=== PATIENT | male | born 1970 | race Two or more races ===

== ENCOUNTER 2021-11-10 13:48 | Inpatient (IN) | payer MEDICARE, MEDICAID ==
[~2021-11-10] VITALS: Ht 177.8 cm; Wt 99.8 kg
--- NOTE | 2021-11-10 13:30 | NUR ---
PT WAS ADMITTED TO ROOM 114 FROM [facility] AT 1330. ADMISSION COMPLETED, MONITORS APPLIED. VSS.
[2021-11-10 13:45] VITALS: BP 154/89
[2021-11-10] MEDS ORDERED: PANT40TA77 PO (14:45)
[2021-11-10] MEDS ORDERED: CRESTOR40 MG PO (14:45)
[2021-11-10] MEDS ORDERED: CLOP75TA PO (14:45)
[2021-11-10] MEDS ORDERED: BUPR150T27 PO (14:45)
[2021-11-10] MEDS ORDERED: CARV25TA2 PO (14:45)
[2021-11-10 15:21] VITALS: BP 145/89
[2021-11-10] MEDS ORDERED: PROCHLORPERAZINE 10 MG/2 ML VIAL. IV PRN (15:45)
[2021-11-10] MEDS ORDERED: DOCUSATE SODIUM 100 MG CAPSULE. PO PRN (15:45)
[2021-11-10] MEDS ORDERED: ONDANSETRON PF 4 MG/2 ML VIAL. IVP PRN (15:45)
[2021-11-10] MEDS: IV NORMAL SALINE 1000ML BAG 1,000 ML IV SCH (15:45)
[2021-11-10] MEDS ORDERED: LORazepam 0.5 MG TABLET PO PRN (15:45)
[2021-11-10] MEDS ORDERED: diphenhydrAMINE HCL 25 MG CAPSULE PO PRN ×2 (15:45)
[2021-11-10] MEDS ORDERED: ACETAMINOPHEN 325 MG TABLET. PO PRN (15:45)
[2021-11-10] MEDS ORDERED: DEXTROSE 50% 25 GM / 50ML DISP.SYRIN. IV PRN (15:45)
[2021-11-10] MEDS ORDERED: ZOLPIDEM 5 MG TABLET. PO PRN (15:45)
[2021-11-10] MEDS ORDERED: diphenhydrAMINE 50 MG/ML VIAL IVP PRN (15:45)
[2021-11-10] MEDS ORDERED: SENNOSIDES 8.6 MG TABLET PO PRN (15:45)
[2021-11-10 17:12] VITALS: BP 108/68
[2021-11-10 18:12] VITALS: BP 126/95
[2021-11-10 20:00] VITALS: BP 118/79
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
[2021-11-10] MEDS: buPROPion SR 150 MG TABLET.SA PO SCH (22:03)
[2021-11-10 23:00] VITALS: BP 102/73
[2021-11-11] MEDS: IV NORMAL SALINE 1000ML BAG 1,000 ML IV SCH ×2 (01:45→11:38)
[2021-11-11 03:00] VITALS: BP 127/87
[2021-11-11 04:59] LABS: BASO # 0.1 x10^3/uL (0.0-0.2); BASO % 1 % (0-3); EOS # 0.3 x10^3/uL (0.0-0.7); EOS % 5 % (0-3); HEMATOCRIT 43.4 % (39.0-53.0); HEMOGLOBIN 14.6 g/dL (13.0-17.5); LYMPH # 2.1 x10^3/uL (1.0-4.8); LYMPH % 29 % (24-48); MEAN CORPUSCULAR HEMOGLOBIN 30 pg (25-35); MEAN CORPUSCULAR HGB CONC 34 g/dL (31-37); MEAN CORPUSCULAR VOLUME 90 fL (79-100); MONO # 0.9 x10^3/uL (0.0-1.1); MONO % 12 % (0-9); NEUT # 3.8 x10^3/uL (1.8-7.7); NEUT % 53 % (31-73); PLATELET COUNT 176 x10^3/uL (140-400); RED BLOOD COUNT 4.85 x10^6/uL (4.30-5.70); RED CELL DISTRIBUTION WIDTH 14.3 % (11.5-14.5); WHITE BLOOD COUNT 7.2 x10^3/uL (4.0-11.0)
[2021-11-11 05:14] LABS: CALCIUM 8.2 mg/dL (8.5-10.1); CREATININE 1.3 mg/dL (0.7-1.3); GFR 58.7; MAGNESIUM 2.1 mg/dL (1.8-2.4); PHOSPHORUS 3.2 mg/dL (2.6-4.7); POTASSIUM 3.9 mmol/L (3.5-5.1)
[2021-11-11 07:00] VITALS: BP 145/91
[2021-11-11] MEDS ORDERED: PANTOPRAZOLE 40 MG TABLET.DR. PO SCH (07:30)
[2021-11-11] MEDS ORDERED: ASPIRIN ENTERIC COATED 81 MG TABLET.DR. PO SCH (08:00)
[2021-11-11] MEDS ORDERED: CARVEDILOL 12.5 MG TABLET. PO SCH (08:00)
[2021-11-11] MEDS: buPROPion SR 150 MG TABLET.SA PO SCH (08:03)
[2021-11-11] MEDS ORDERED: CLOPIDOGREL BISULFATE 75 MG TABLET PO SCH (09:00)
[2021-11-11] MEDS ORDERED: ATORVASTATIN CALCIUM 40 MG TABLET. PO SCH (09:00)
[2021-11-11 09:36] LABS: CHOLESTEROL/HDL RATIO 3.8
--- NOTE | 2021-11-11 10:28 | PDOC2 ---
NEUROLOGY CONSULT Date of Service DOS: DATE: 11/11/21 TIME: Reason for Consult Reason for Consult: Possible stroke Referring Physician Referring Physician: Dr. Wagoner Source Source: Caregiver (), Chart review, Patient History of Present Illness History of Present Illness The patient is a 51-year-old right-handed male with a history of cerebral palsy affecting the right side of his body. He woke up yesterday morning with increased right-sided numbness and weakness. He came to the [facility] emergency department. He did undergo CT angiogram as reviewed below. He is feeling somewhat better today but still feels a little bit numb on the right. There is no prior history of stroke, seizure, or head injury. Last known normal was 11/09, 21:00 Past Medical History Cardiovascular: CAD, HTN, [place], Hyperlipidemia CENTRAL NERVOUS SYSTEM: Other (Cerebral palsy) GI: GERD Psych: Depression Past Surgical History Past Surgical History: Other (Coronary stent) Family History Family History: CAD Social History Social History , unemployed, no alcohol or tobacco in 2 years Current Medications Current Medications Current Medications Sennosides (Senna) 17.2 mg PRN BID PRN PO CONSTIPATION; Start 11/10/21 at 15:45 Docusate Sodium (Colace) 100 mg PRN DAILY PRN PO HARD STOOLS; Start 11/10/21 at 15:45 Ondansetron HCl (Zofran) 4 mg PRN Q6HRS PRN IVP NAUSEA/VOMITING, 1st CHOICE; Start 11/10/21 at 15:45 Aspirin (Ecotrin) 81 mg DAILYWBKFT PO Last administered on 11/11/21at 08:02; Start 11/11/21 at 08:00 Dextrose (Dextrose 50%-Water Syringe) 12.5 gm PRN Q15MIN PRN IV SEE COMMENTS; Start 11/10/21 at 15:45 Sodium Chloride 1,000 ml @ 100 mls/hr Q10H IV Last administered on 11/11/21at 01:45; Start 11/10/21 at 15:45 Acetaminophen (Tylenol) 650 mg PRN Q4HRS PRN PO TEMP OVER 100.4F OR MILD PAIN; Start 11/10/21 at 15:45 Lorazepam (Ativan) 0.5 mg PRN Q6HRS PRN PO ANXIETY / AGITATION; Start 11/10/21 at 15:45 Lorazepam (Ativan Inj) 0.25 mg PRN Q4HRS PRN IV ANXIETY / AGITATION; Start 11/10/21 at 15:45 Prochlorperazine Edisylate (Compazine) 10 mg PRN Q6HRS PRN IV NAUSEA/VOMITING, 2nd CHOICE; Start 11/10/21 at 15:45 Diphenhydramine HCl (Benadryl) 25 mg PRN Q6HRS PRN IVP ITCHING; Start 11/10/21 at 15:45 Diphenhydramine HCl (Benadryl) 25 mg PRN Q6HRS PRN PO ITCHING; Start 11/10/21 at 15:45 Diphenhydramine HCl (Benadryl) 25 mg PRN QHS PRN PO INSOMNIA, 1st CHOICE; Start 11/10/21 at 15:45 Zolpidem Tartrate (Ambien) 2.5 mg PRN QHS PRN PO INSOMNIA, 2nd CHOICE; Start 11/10/21 at 15:45 Clopidogrel Bisulfate (Plavix) 75 mg DAILY PO Last administered on 11/11/21at 08:02; Start 11/11/21 at 09:00 Pantoprazole Sodium (Protonix) 40 mg DAILYAC PO Last administered on 11/11/21at 08:02; Start 11/11/21 at 07:30 Bupropion HCl (Wellbutrin Sr) 150 mg BID PO Last administered on 11/11/21at 08:03; Start 11/10/21 at 22:00 Carvedilol (Coreg) 25 mg BIDWMEALS PO Last administered on 11/11/21at 08:03; Start 11/11/21 at 08:00 Atorvastatin Calcium (Lipitor) 80 mg DAILY PO Last administered on 11/11/21at 08:03; Start 11/11/21 at 09:00 Active Scripts Active Reported Crestor (Rosuvastatin Calcium) 40 Mg Tablet 0.5 Tab PO DAILY Protonix (Pantoprazole Sodium) 40 Mg Tablet.dr 40 Mg PO DAILYAC Clopidogrel (Clopidogrel Bisulfate) 75 Mg Tablet 1 Tab PO DAILY Bupropion Hcl Sr (Bupropion Hcl) 150 Mg Tablet.er 150 Mg PO BID Carvedilol 25 Mg Tablet 25 Mg PO BIDWMEALS Allergies Allergies: Coded Allergies: No Known Drug Allergies (Unverified , 11/10/21) ROS Review of System Negative for fever, chills, weight loss, shortness of breath, chest pain, indigestion, hematochezia, melena, and dysuria. Full 14-point review of systems is negative. Physical Exam Physical Examination General: Well-developed, well-nourished white male in no acute distress HEENT: Normocephalic andatraumatic. Temporal arteriespulsatile and nontender. Neck: Supple without bruit, no meningismus Musculoskeletal: Stability:see neurologic. Gait exam:see neurologic. Tone:see neurologic.Strength:see neurologic. Neurological: Mental Status:intact, orientation, memory, attention span/concentration, language, fund of knowledge normal. Cranial Nerves:Pupils equal and reactive to light, extraocular movements areintact, visual bose are full to confrontation. Facial sensation is normal. There is no facial asymmetry. Vestibulo-ocular reflex is intact. Palate elevates and tongue protrudes in midline. All other cranial related problems are negative except as mentioned before.Reflexes:2+ and symmetric with flexor plantar responses. Motor:5-/5 right hemiparesis, otherwise 5/5 strength with normal tone and bulk. Coordination:Finger-nose finger and eexp-sd-wwwf testing are normal. Rapid alternating movements and fine finger movements are intact. Gait:A little unsteady. Sensory:Catchy loss on the right Vitals VITALS Vital Signs Date Time Temp Pulse Resp B/P (MAP) Pulse Ox O2 Delivery O2 Flow Rate FiO2 11/11/21 08:03 72 145/91 11/11/21 08:00 Room Air 11/11/21 07:00 98.0 20 96 98.0 Labs Labs Laboratory Tests Test 11/11/21 04:40 White Blood Count 7.2 x10^3/uL (4.0-11.0) Red Blood Count 4.85 x10^6/uL (4.30-5.70) Hemoglobin 14.6 g/dL (13.0-17.5) Hematocrit 43.4 % (39.0-53.0) Mean Corpuscular Volume 90 fL (79-100) Mean Corpuscular Hemoglobin 30 pg (25-35) Mean Corpuscular Hemoglobin Concent 34 g/dL (31-37) Red Cell Distribution Width 14.3 % (11.5-14.5) Platelet Count 176 x10^3/uL (140-400) Neutrophils (%) (Auto) 53 % (31-73) Lymphocytes (%) (Auto) 29 % (24-48) Monocytes (%) (Auto) 12 % (0-9) Eosinophils (%) (Auto) 5 % (0-3) Basophils (%) (Auto) 1 % (0-3) Neutrophils # (Auto) 3.8 x10^3/uL (1.8-7.7) Lymphocytes # (Auto) 2.1 x10^3/uL (1.0-4.8) Monocytes # (Auto) 0.9 x10^3/uL (0.0-1.1) Eosinophils # (Auto) 0.3 x10^3/uL (0.0-0.7) Basophils # (Auto) 0.1 x10^3/uL (0.0-0.2) Sodium Level 142 mmol/L (136-145) Potassium Level 3.9 mmol/L (3.5-5.1) Chloride Level 107 mmol/L (98-107) Carbon Dioxide Level 29 mmol/L (21-32) Anion Gap 6 (6-14) Blood Urea Nitrogen 11 mg/dL (8-26) Creatinine 1.3 mg/dL (0.7-1.3) Estimated GFR (Cockcroft-Gault) 58.7 Glucose Level 112 mg/dL (70-99) Calcium Level 8.2 mg/dL (8.5-10.1) Phosphorus Level 3.2 mg/dL (2.6-4.7) Magnesium Level 2.1 mg/dL (1.8-2.4) Triglycerides Level 69 mg/dL (0-150) Cholesterol Level 117 mg/dL (0-200) LDL Cholesterol, Calculated 72 mg/dL (0-100) VLDL Cholesterol, Calculated 14 mg/dL (0-40) Non-HDL Cholesterol Calculated 86 mg/dL (0-129) HDL Cholesterol 31 mg/dL (40-60) Cholesterol/HDL Ratio 3.8 Laboratory Tests Test 11/11/21 04:40 White Blood Count 7.2 x10^3/uL (4.0-11.0) Red Blood Count 4.85 x10^6/uL (4.30-5.70) Hemoglobin 14.6 g/dL (13.0-17.5) Hematocrit 43.4 % (39.0-53.0) Mean Corpuscular Volume 90 fL (79-100) Mean Corpuscular Hemoglobin 30 pg (25-35) Mean Corpuscular Hemoglobin Concent 34 g/dL (31-37) Red Cell Distribution Width 14.3 % (11.5-14.5) Platelet Count 176 x10^3/uL (140-400) Neutrophils (%) (Auto) 53 % (31-73) Lymphocytes (%) (Auto) 29 % (24-48) Monocytes (%) (Auto) 12 % (0-9) Eosinophils (%) (Auto) 5 % (0-3) Basophils (%) (Auto) 1 % (0-3) Neutrophils # (Auto) 3.8 x10^3/uL (1.8-7.7) Lymphocytes # (Auto) 2.1 x10^3/uL (1.0-4.8) Monocytes # (Auto) 0.9 x10^3/uL (0.0-1.1) Eosinophils # (Auto) 0.3 x10^3/uL (0.0-0.7) Basophils # (Auto) 0.1 x10^3/uL (0.0-0.2) Sodium Level 142 mmol/L (136-145) Potassium Level 3.9 mmol/L (3.5-5.1) Chloride Level 107 mmol/L (98-107) Carbon Dioxide Level 29 mmol/L (21-32) Anion Gap 6 (6-14) Blood Urea Nitrogen 11 mg/dL (8-26) Creatinine 1.3 mg/dL (0.7-1.3) Estimated GFR (Cockcroft-Gault) 58.7 Glucose Level 112 mg/dL (70-99) Calcium Level 8.2 mg/dL (8.5-10.1) Phosphorus Level 3.2 mg/dL (2.6-4.7) Magnesium Level 2.1 mg/dL (1.8-2.4) Triglycerides Level 69 mg/dL (0-150) Cholesterol Level 117 mg/dL (0-200) LDL Cholesterol, Calculated 72 mg/dL (0-100) VLDL Cholesterol, Calculated 14 mg/dL (0-40) Non-HDL Cholesterol Calculated 86 mg/dL (0-129) HDL Cholesterol 31 mg/dL (40-60) Cholesterol/HDL Ratio 3.[address] ANGIOGRAPHY HEAD AND NECK PQRS Compliance Statement: One or more of the following individualized dose reduction techniques were utilized for this examination: 1. Automated exposure control 2. Adjustment of the mA and/or kV according to patient size 3. Use of iterative reconstruction technique CTA HEAD AND NECK W/WO CONTRAST 11/10/2021 9:10 AM INDICATION: Right-sided facial and body weakness COMPARISON: None available TECHNIQUE: Multiple axial CT images of the head and neck were obtained after the intravenous administration of nonionic contrast. Coronal and sagittal reformats are provided. Maximum intensity projection images are provided. Stenosis calculations for CT, MR, and conventional angiography are based upon measurements of the distal ICA diameter in accordance with the NASCET methodolo gy. Stenosis calculations for carotid ultrasound studies are derived from validated velocity criteria which are known to correlate with the NASCET methodology. FINDINGS: Ventricles, sulci and basal cisterns are normal in appearance. [place]-white matter differentiation is preserved. There is no mass, mass effect or midline shift. Posterior fossa is normal in appearance. Sella and suprasellar cistern appear normal. Orbits are normal in appearance . Scalp and calvaria appear intact. Mild mucosal thickening of the maxillary sinuses. Mastoid air cells are well aerated. Visualized portions of lungs are clear. Thyroid gland is normal in appearance. Neck soft tissues are normal in appearance. Right paratracheal lymph node measures 1.1 cm (series 4, image 180). Precarinal lymph node measures 1.5 cm (series 4, image 188). Pharynx and larynx appear intact. Vascular findings: There is a normal three-vessel aortic arch. Origins of the brachiocephalic vessels are widely patent. Right common carotid artery is normal in course and caliber. No significant atherosclerotic changes are identified at the right carotid bifurcation. No significant stenosis of the right cervical internal carotid artery. External carotid artery is widely patent. Left common carotid artery is normal in course and caliber. No significant atherosclerotic changes are identified at the left carotid bifurcation. No significant stenosis of the left cervical internal carotid artery. External carotid artery is widely patent. Cervical vertebral arteries are normal in course and caliber. There is mild irregularity of the left intracranial vertebral artery. Intracranial segments of internal carotid arteries are normal in course and caliber. There is mild calcified atheromatous plaque involving the cavernous segments without significant stenosis. Origins of the ophthalmic segments of the internal carotid artery appears widely patent. Middle cerebral arteries are normal in course and caliber with patent sylvian branches. Anterior cerebral arteries are normal in course and caliber. Anterior communicating artery is visualized. Basilar artery is normal in course and caliber. Superior cerebellar arteries are widely patent. Posterior cerebral arteries are normal in course and caliber. There is no aneurysm, vascular malformation or high-grade stenosis/large vessel occlusion involving [place]. Superior sagittal sinus is patent. IMPRESSION: 1. There is no evidence for acute intracranial hemorrhage. Mild irregularity involving the left intracranial vertebral artery without significant stenosis. 2. There is no evidence for hemodynamically significant carotid stenosis. 3. There is no aneurysm, vascular malformation or high-grade stenosis/large vessel occlusion involving the [place]. 4. Mediastinal lymphadenopathy remains indeterminate. Dedicated CT chest could be of benefit for further characterization. Findings may be reactive and correlation with recent pulmonary infection is recommended. Assessment/Plan Assessment/Plan Impression: Right-sided stroke symptoms in the setting of previous right-sided cerebral palsy, patient says that he is better than yesterday but still not back to baseline. Lipid profile already back, favorable. Hypertension, coronary artery disease Recommendations: MRI of the brain Echocardiogram Aspirin and statin Rehabilitation screening Discharge later today if tests are negative. Discussed with patient and his . Thank you for letting me help with the patient's care. HANH BEJARANO MD November 11, 2021 10:28
--- NOTE | 2021-11-11 10:52 | PDOC ---
[employer] PROGRESS NOTE Date of Service DOS: DATE: 11/11/21 TIME: 10:51 Chief Complaint Chief Complaint TIA versus stroke History of Present Illness History of Present Illness 11/12/2019 Patient seen and examined He seems to be at his baseline An MRI has been ordered by neurology We hope to discharge after MRI if okay with neurology Discussed with RN Discussed with case maker Vitals/I&O Vitals/I&O: Vital Signs Date Time Temp Pulse Resp B/P (MAP) Pulse Ox O2 Delivery O2 Flow Rate FiO2 11/11/21 08:03 72 145/91 11/11/21 08:00 Room Air 11/11/21 07:00 98.0 20 96 98.0 I & O 11/10/21 11/10/21 11/11/21 15:00 23:00 07:00 Intake Total 1352 ml Output Total 750 ml 450 ml Balance -750 ml 902 ml Physical Exam General: Alert Heart: Regular rate Lungs: Clear Abdomen: Normal bowel sounds Extremities: No clubbing Skin: No rashes Labs Labs: Laboratory Tests Test 11/11/21 04:40 White Blood Count 7.2 x10^3/uL (4.0-11.0) Red Blood Count 4.85 x10^6/uL (4.30-5.70) Hemoglobin 14.6 g/dL (13.0-17.5) Hematocrit 43.4 % (39.0-53.0) Mean Corpuscular Volume 90 fL (79-100) Mean Corpuscular Hemoglobin 30 pg (25-35) Mean Corpuscular Hemoglobin Concent 34 g/dL (31-37) Red Cell Distribution Width 14.3 % (11.5-14.5) Platelet Count 176 x10^3/uL (140-400) Neutrophils (%) (Auto) 53 % (31-73) Lymphocytes (%) (Auto) 29 % (24-48) Monocytes (%) (Auto) 12 % (0-9) Eosinophils (%) (Auto) 5 % (0-3) Basophils (%) (Auto) 1 % (0-3) Neutrophils # (Auto) 3.8 x10^3/uL (1.8-7.7) Lymphocytes # (Auto) 2.1 x10^3/uL (1.0-4.8) Monocytes # (Auto) 0.9 x10^3/uL (0.0-1.1) Eosinophils # (Auto) 0.3 x10^3/uL (0.0-0.7) Basophils # (Auto) 0.1 x10^3/uL (0.0-0.2) Sodium Level 142 mmol/L (136-145) Potassium Level 3.9 mmol/L (3.5-5.1) Chloride Level 107 mmol/L (98-107) Carbon Dioxide Level 29 mmol/L (21-32) Anion Gap 6 (6-14) Blood Urea Nitrogen 11 mg/dL (8-26) Creatinine 1.3 mg/dL (0.7-1.3) Estimated GFR (Cockcroft-Gault) 58.7 Glucose Level 112 mg/dL (70-99) Calcium Level 8.2 mg/dL (8.5-10.1) Phosphorus Level 3.2 mg/dL (2.6-4.7) Magnesium Level 2.1 mg/dL (1.8-2.4) Triglycerides Level 69 mg/dL (0-150) Cholesterol Level 117 mg/dL (0-200) LDL Cholesterol, Calculated 72 mg/dL (0-100) VLDL Cholesterol, Calculated 14 mg/dL (0-40) Non-HDL Cholesterol Calculated 86 mg/dL (0-129) HDL Cholesterol 31 mg/dL (40-60) Cholesterol/HDL Ratio 3.8 Comment Review of Relevant I have reviewed the following items katia (where applicable) has been applied. Medications: Current Medications Medications (Trade) Dose Ordered Sig/Cleve Route PRN Reason Start Time Stop Time Status Last Admin Dose Admin Aspirin (Ecotrin) 81 mg DAILYWBKFT PO 11/11/21 08:00 11/11/21 08:02 Sodium Chloride 1,000 ml @ 100 mls/hr Q10H IV 11/10/21 15:45 11/11/21 01:45 Clopidogrel Bisulfate (Plavix) 75 mg DAILY PO 11/11/21 09:00 11/11/21 08:02 Pantoprazole Sodium (Protonix) 40 mg DAILYAC PO 11/11/21 07:30 11/11/21 08:02 Bupropion HCl (Wellbutrin Sr) 150 mg BID PO 11/10/21 22:00 11/11/21 08:03 Carvedilol (Coreg) 25 mg BIDWMEALS PO 11/11/21 08:00 11/11/21 08:03 Atorvastatin Calcium (Lipitor) 80 mg DAILY PO 11/11/21 09:00 11/11/21 08:03 Justifications for Admission Other Justification MADAI MURDOCK III DO November 11, 2021 10:52
[2021-11-11] MEDS ORDERED: ASPI-886 PO (10:54)
[2021-11-11 11:00] VITALS: BP 140/95
[2021-11-11 15:00] VITALS: BP 114/71
--- NOTE | 2021-11-11 16:03 | CARD ---
MR#: [id number] Date of Study: 11/11/2021 Ordering Physician: HANH BEJARANO, Referring Physician: HANH BEJARANO, Tech: Manju Saul [facility] APPROVED REPORT EXAM: Two-dimensional and M-mode echocardiogram with Doppler and color Doppler. Other Information Quality : Technically LimitedHR: 67bpm Rhythm : NSR INDICATION Dyspnea 2D DIMENSIONS Left Atrium(2D)3.7 (1.6-4.0cm)IVSd1.3 (0.7-1.1cm) Aortic Root(2D)3.1 (2.0-3.7cm)LVDd4.1 (3.9-5.9cm) LVOT Diameter2.0 (1.8-2.4cm)PWd1.2 (0.7-1.1cm) LVDs2.4 (2.5-4.0cm)FS (%) 41.2 % SV53.2 mlLVEF(%)72.6 (>50%) Mitral Valve MV E Ecioqjkm39.7cm/sMV DECEL [id number] MV A Zwbmzxcb20.2cm/sE/A Ratio1.6 LEFT VENTRICLE The left ventricle is normal size. There is mild concentric left ventricular hypertrophy. The left ve ntricular systolic function is normal and the ejection fraction is within normal range. Estimated eje ction faction 60%. There is normal LV segmental wall motion. The left ventricular diastolic function and filling is normal for age. RIGHT VENTRICLE The right ventricle is normal size. There is normal right ventricular wall thickness. The right ventr icular systolic function is normal. ATRIA The left atrium size is normal. The right atrium size is normal. The interatrial septum is intact wit h no evidence for an atrial septal defect or patent foramen ovale as noted on 2-D or Doppler imaging. AORTIC VALVE The aortic valve is normal in structure and function. Doppler and Color Flow revealed no significant aortic regurgitation. There is no significant aortic valvular stenosis. MITRAL VALVE The mitral valve is normal in structure and function. There is no evidence of mitral valve prolapse. There is no mitral valve stenosis. Doppler and Color Flow revealed no mitral valve regurgitation note d. TRICUSPID VALVE The tricuspid valve is normal in structure and function. Doppler and Color Flow revealed no tricuspid valve regurgitation noted. There is no tricuspid valve stenosis. PULMONIC VALVE Doppler and Color Flow revealed no pulmonic valvular regurgitation. There is no pulmonic valvular benoit nosis. GREAT VESSELS The aortic root is normal in size. The ascending aorta is normal in size. The IVC is normal in size a nd collapses >50% with inspiration. PERICARDIAL EFFUSION There is no evidence of significant pericardial effusion. Critical Notification Critical Value: No <Conclusion> The left ventricular systolic function is normal and the ejection fraction is within normal range. E stimated ejection faction 60%. There is normal LV segmental wall motion. Technically difficult study Signed by : Akil Richards, Electronically Approved : 11/11/2021 16:03:38
--- NOTE | 2021-11-11 16:43 | RAD ---
EXAMINATION: Magnetic resonance imaging (MRI) of the brain and brainstem without contrast 11/11/2021 3 :59 PM HISTORY: Chest pain, increased right-sided weakness TECHNIQUE: Multiplanar multi-weighted MRI of the brain and brainstem was performed without intravenou s contrast using the general brain protocol. COMPARISON: None available. FINDINGS: The scalp and calvarium are normal. The superior sagittal sinus demonstrates normal venous flow. The corpus callosum is normal in shape and signal intensity. The posterior fossa is unremarkable. The p ituitary and sella are normal. The brainstem and craniocervical junction are unremarkable. Abnormal morphology involving the body of the left lateral ventricle could reflect mild degree of porencephaly (series 6001, image 18). No definite findings of closed lip/(left schizencephaly. No hydrocephalus. Diffusion weighted images reveal no hyperintensities to suggest acute cerebral infarction. The suscep tibility weighted sequences reveal no evidence of acute or chronic hemorrhage. The paranasal sinuses are normal. The visualized portions of the mastoids are unremarkable. The orbi ts appear normal. Normal flow voids are demonstrated in the carotid arteries and basilar artery. IMPRESSION: 1. No evidence for acute or subacute ischemia. 2. 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 Electronically signed by: Ekta Hassan MD (11/11/2021 4:41 PM) [id number]
--- NOTE | 2021-11-11 18:06 | NUR ---
Pt was wheeled to outpatient entrance by this nurse with spouse and son. Pt educated on medication changes and discharged at 1740.
--- NOTE | 2021-11-12 11:08 | DS ---
DATE OF DISCHARGE: 11/11/2021 ADMISSION DIAGNOSIS: Stroke symptoms. DISCHARGE DIAGNOSES: Resolving transient ischemic attack with resolving right-sided weakness, history of hyperlipidemia, gastroesophageal reflux disease, cerebral palsy, congestive heart failure, hypertension and previous transient ischemic attack. CONSULTATIONS: Neurology. PROCEDURES: None. HOSPITAL COURSE: The patient is a pleasant middle-aged male who presented with right-sided weakness and stroke symptoms. He has a previous history of cerebral palsy. He was admitted. We consulted Neurology. We did MRIs and physical therapy. Over the next 48 hours, he did better and his symptoms resolved. We discharged to home. DISPOSITION: Home. ACTIVITY: As tolerated. DIET: Low sodium. DISCHARGE MEDICATIONS: Please see the [facility]. Aspirin 81 a day, bupropion 150 b.i.d., carvedilol 25 b.i.d., Plavix 75 a day, Protonix 40 a day and Crestor 20 mg a day. TOTAL TIME: [address]: Julia TID: [id number]
== END 2021-11-11 17:40 | disposition home or self-care (01) | DRG 69 ==
LOC: 1 WEST ICU 13:48
PROVIDERS: ADMIT Internal Medicine; ATTEND Internal Medicine
DX: G45.9 Transient cerebral ischemic attack, unspecified (principal); I11.0 Hypertensive heart disease with heart failure; I25.10 Atherosclerotic heart disease of native coronary artery without angina pectoris; I50.9 Heart failure, unspecified; Z82.49 Family history of ischemic heart disease and other diseases of the circulatory system; Z83.3 Family history of diabetes mellitus; Z86.73 Personal history of transient ischemic attack (TIA), and cerebral infarction without residual deficits; Z95.5 Presence of coronary angioplasty implant and graft; F32.A Depression, unspecified; F41.9 Anxiety disorder, unspecified; K21.9 Gastro-esophageal reflux disease without esophagitis; E78.5 Hyperlipidemia, unspecified; I25.2 Old myocardial infarction
CPT/HCPCS: 36415; 70551; 80048; 80061; 83735; 84100; 85025; 93306; J7030; 92610-GN; C8929; G0378